=== PATIENT | male | born 1960 | race Caucasian/White ===

== ENCOUNTER 2020-10-26 13:09 | Emergency (ER) | payer SELFPAY ==
[~2020-10-26] VITALS: Ht 177.8 cm; Wt 90.7 kg
[2020-10-26] MEDS ORDERED: CASIRIVIMAB/IMDEVIMAB 10 ML in SODIUM CHLORIDE 0.9% 100 ML IV ONE (13:30)
[2020-10-26] MEDS ORDERED: SODIUM CHLORIDE 0.9% 100 ML ONE (13:34)
[2020-10-26 14:00] VITALS: BP 124/79
== END 2020-10-26 14:01 | disposition home or self-care (01) ==
LOC: ER 13:21
DX: R11.2 Nausea with vomiting, unspecified (principal); U07.1 COVID-19
CPT/HCPCS: 99283; J7050